=== PATIENT | male | born 1950 | race Caucasian/White ===

== ENCOUNTER 2020-06-22 19:17 | Day surgery (SDCO) | payer MEDICARE, OTHER ==
[2020-06-22 20:24] LABS: BASOPHIL 0.8 % (0-2); EOSINOPHIL 0.7 % (0-7); HCT 44.7 % (42.0-52.0); HGB 15.8 g/dl (13.2-18.0); LYMPHOCYTE 21.3 % (15-48); MCH 33.1 pg (25.0-31.0); MCHC 35.3 g/dL (32.0-36.0); MCV 93.5 fL (78.0-100.0); MPV 9.6 fL (6.0-9.5); NEUTROPHIL 67.7 % (41-80); NRBC 0; PLT 207 K/uL (150-400); RBC 4.78 M/uL (4.70-6.00); RDW 12.2 % (11.5-14.0)
[2020-06-22 20:41] LABS: BUN/CREAT RATIO (CALC) 18.3 RATIO; CREATININE 0.71 mg/dL (0.67-1.17)
[2020-06-22 21:12] LABS: INR 0.97 (0.9-1.2); PROTHROMBIN TIME 12.2 SECONDS (11.4-13.6); PTT 31.8 SECONDS (22.2-34.7)
[2020-06-23 00:34] LABS: BILIRUBIN NEGATIVE (NEGATIVE); BLOOD NEGATIVE Ery/uL (NEGATIVE); CLARITY CLEAR (CLEAR); COLOR YELLOW (YELLOW); GLUCOSE (U) NORMAL (NORMAL); LEUKOCYTES NEGATIVE Leu/uL (NEGATIVE); NITRITE NEGATIVE (NEGATIVE); PROTEIN NEGATIVE (NEGATIVE); SPECIFIC GRAVITY 1.025 (1.001-1.030); UROBILINOGEN 0.2 mg/dL (0.2-1.0); pH 5.5 (5.0-9.0)
[2020-06-23] MEDS ORDERED: NORVASC2.5 MG PO (01:00)
[2020-06-23 06:21] LABS: BASOPHIL 1.4 % (0-2); EOSINOPHIL 0.8 % (0-7); HCT 43.9 % (42.0-52.0); HGB 15.3 g/dl (13.2-18.0); LYMPHOCYTE 33.8 % (15-48); MCH 32.8 pg (25.0-31.0); MCHC 34.9 g/dL (32.0-36.0); MCV 94.2 fL (78.0-100.0); MONOCYTE 11.1 % (0-12); MPV 10.1 fL (6.0-9.5); NEUTROPHIL 52.5 % (41-80); NRBC 0; PLT 179 K/uL (150-400); RBC 4.66 M/uL (4.70-6.00); RDW 12.2 % (11.5-14.0); WBC 4.9 K/uL (4.0-10.5)
[2020-06-23 06:52] LABS: ALBUMIN 3.6 g/dL (3.4-5.0); BILIRUBIN - TOTAL 0.8 mg/dL (0.2-1.0); BUN/CREAT RATIO (CALC) 12.5 RATIO; CREATININE 0.8 mg/dL (0.67-1.17); GLOBULIN (CALCULATION) 2.7 g/dL; POTASSIUM 4.2 mmol/L (3.5-5.1); TOTAL PROTEIN 6.3 g/dL (6.4-8.2)
--- NOTE | 2020-06-23 14:37 | NUR ---
06/23/20 Mr. Kc is a 69 y/o gentleman. His home is in [place], [place]. He has been staying at his son's home in [place], [place]. 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 [email or web address] Kc is independent and does not use DME. He bycyles 10 miles per day. - No discharge planning needs are anticipated.
[2020-06-24 06:25] LABS: BASOPHIL 1.2 % (0-2); EOSINOPHIL 0.8 % (0-7); HCT 44.4 % (42.0-52.0); HGB 15.6 g/dl (13.2-18.0); MCH 33.1 pg (25.0-31.0); MCHC 35.1 g/dL (32.0-36.0); MCV 94.1 fL (78.0-100.0); MONOCYTE 10.3 % (0-12); NEUTROPHIL 57.5 % (41-80); NRBC 0; PLT 205 K/uL (150-400); RBC 4.72 M/uL (4.70-6.00); WBC 4.9 K/uL (4.0-10.5)
[2020-06-24 07:05] LABS: BUN/CREAT RATIO (CALC) 13.3 RATIO; CREATININE 0.83 mg/dL (0.67-1.17); POTASSIUM 4.2 mmol/L (3.5-5.1)
== END 2020-06-24 11:55 | disposition other institution (70) ==
LOC: FER 19:17 → FTCU 23:19
PROVIDERS: Allergy & Immunology Allergy; Nurse Practitioner; Nurse Practitioner Family; ADMIT Internal Medicine
DX: I21.4 Non-ST elevation (NSTEMI) myocardial infarction (principal); I10 Essential (primary) hypertension; R51.9 Headache, unspecified; M54.2 Cervicalgia; H40.9 Unspecified glaucoma; K27.9 Peptic ulcer, site unspecified, unspecified as acute or chronic, without hemorrhage or perforation; I08.3 Combined rheumatic disorders of mitral, aortic and tricuspid valves; I27.20 Pulmonary hypertension, unspecified; R22.1 Localized swelling, mass and lump, neck; E78.5 Hyperlipidemia, unspecified; Z79.899 Other long term (current) drug therapy; Z20.822 Contact with and (suspected) exposure to COVID-19
CPT/HCPCS: 36415; 70450; 71046; 72125; 76705; 80048; 80053; 81003; 83880; 84484; 85025; 85379; 85610; 85730; 93005; G0378; J1650; J2270; J2405; U0002